=== PATIENT | male | born 2000 | race Caucasian/White ===

== ENCOUNTER 2024-07-04 14:15 | Emergency (ER) | payer OTHER, SELFPAY ==
[2024-07-04 14:21] VITALS: BP 140/92
[2024-07-04 14:50] LABS: % Basophils 0.2 % (0-2); % Immature Granulocytes 0.3 % (0-0.5); % Lymphocytes 12.5 % (20.5-51.1); % Monocytes 3.6 % (1.7-9.3); % Neutrophils 82.4 % (42.2-75.2); Absolute Eosinophils 0.1 10^3/uL (0-0.7); Absolute Lymphocytes 1.4 10^3/uL (1.2-3.4); Absolute Monocytes 0.4 10^3/uL (0.1-0.6); Absolute Neutrophils 9.3 10^3/uL (1.4-6.5); Hematocrit 51.1 % (39.0-52.0); Hemoglobin 17.2 g/dL (13.0-18.0); Mean Corp Hgb Conc. 33.7 g/dL (33.0-37.0); Mean Corpuscular Hgb 28.8 pg (27.0-31.0); Mean Corpuscular Volume 85.5 fL (80.0-94.0); Mean Platelet Volume 8.6 fL (7.4-10.4); Nucleated Red Blood Cells % 0 % (-); Platelet Count 281 10^3/uL (130-400); Red Blood Cell Count 5.98 10^6/uL (4.70-6.10); Red Cell Dist. Width 12.9 % (11.5-14.5); White Blood Cell Count 11.3 10^3/uL (4.8-10.8)
[2024-07-04 14:55] LABS: ALT (SGPT) 19 U/L (0-50); AST (SGOT) 26 U/L (17-59); Albumin 5.1 g/dl (3.5-5.0); Alkaline Phosphatase 62 U/L (38-126); Blood Urea Nitrogen 27 mg/dl (9-20); Calcium 10.2 mg/dl (8.4-10.2); Carbon Dioxide 32 mmol/L (22-30); Chloride 99 mmol/L (98-107); Glucose 119 mg/dl (70-99); Lipase 34 U/L (23-300); Potassium 4.6 mmol/L (3.5-5.1); Sodium 139 mmol/L (135-145); Total Bilirubin 1.9 mg/dl (0.2-1.3); Total Protein 8.4 g/dl (6.3-8.2); eGFR > 60.00
[2024-07-04 17:14] VITALS: BP 155/89
--- NOTE | 2024-07-04 17:58 | EDRN ---
Dr. Bosch in room w/pt.
--- NOTE | 2024-07-04 18:05 | ED.GENMED ---
History of Present Illness
General
Chief Complaint: Breathing Problem
Source: patient and family
Time Seen by Provider: 07/04/24 17:57
History of Present Illness
History of Present Illness:
24-year-old presents to the emergency room for evaluation of feeling a discomfort in his epigastrium and chest that waxes and wanes. He has been experiencing this for the past month. He describes it primarily as a hunger type discomfort that is
followed by a feeling of not being able to take a satisfying breath. He does not feel particular short of breath. He does not have pain with deep inspiration. Mom concerned because the patient's brother was diagnosed with 'blood clot'.
Phy Exam
Physical Exam
Physical Exam:
General: Awake, Alert, Oriented X3. No acute distress.
Vitals: unremarkable
Head: Atraumatic
Eyes: Pupils equal, EOMI
Throat: Airway intact, no exudates
Neck: Trachea midline
Lungs: Clear and equal b/l
Heart: Regular rate, no murmurs
Abd: Soft, Nontender, No pulsatile mass
Neuro: Nonfocal
Skin: Warm, dry, no rash
Extremities: pulses equal b/l, no edema
Course
Orders/Labs/Results
Orders:
Orders
07/04/24 14:17
Electrocardiogram (*1) Urgent
Reason for Study: Chest Pain
EKG- Treatment ONCE
07/04/24 14:27
Complete Blood Count/With Diff Urgent
Comprehensive Metabolic Panel Urgent
Lipase Urgent
07/04/24 18:20
D-Dimer Urgent
07/04/24 18:47
CT Chest Pe Study Urgent
Comment:
Reason For Exam: chest pain family hx of PE
Abnormal Lab Results
07/04/24 07/04/24
14:27 18:20
WBC 11.3 H 10^3/uL
(4.8-10.8)
Absolute Neuts (auto) 9.3 H 10^3/uL
(1.4-6.5)
Neutrophils % 82.4 H %
(42.2-75.2)
Lymphocytes % 12.5 L %
(20.5-51.1)
D-Dimer 0.53 H ug/mlFEU
(0.00-0.50)
Carbon Dioxide 32 H mmol/L
(22-30)
BUN 27 H mg/dl
(9-20)
Glucose 119 H mg/dl
(70-99)
Total Bilirubin 1.9 H mg/dl
(0.2-1.3)
Total Protein 8.4 H g/dl
(6.3-8.2)
Albumin 5.1 H g/dl
(3.5-5.0)
07/04/24 14:27
07/04/24 14:27
Vital Signs
Initial and Last Documented VS:
Initial Vital Signs
Temp Pulse Resp BP Pulse Ox
97.9 F 106 20 140/92 99
07/04/24 14:21 07/04/24 14:21 07/04/24 14:21 07/04/24 14:21 07/04/24 14:21
Last Documented Vital Signs
Temp Pulse Resp BP Pulse Ox
97.9 F 53 12 144/64 96
07/04/24 14:21 07/04/24 20:00 07/04/24 20:00 07/04/24 20:00 07/04/24 20:00
MDM/Problems Addressed
Differential Diagnosis Includes:
GERD, cardiac pain, PE
MDM/Problems Addressed:
Patient brought to the emergency room at the rest of his primary care doctor due to chest discomfort. The overall description seems atypical. Troponins negative. Mom concerned because there is a history of pulmonary embolism in the patient's
brother. D-dimer ordered to help exclude PE. Unfortunately D-dimer is mildly elevated. CT angiogram obtained to rule out PE. This is negative for PE. No other pathology noted. Suspect the patient's symptoms are GI related. Recommend a course
of Prilosec OTC. Follow-up with primary
*Radiology
Radiology exam reviewed: radiology read reviewed
*Pulse Oximetry
Patient hypoxic: no
*EKG
Interpreted by ED Provider?: Yes
Heart Rate: 78
Rate: normal
Rhythm: sinus
[place]: normal axis
Interval: normal interval
QRS Pattern: normal QRS
Ischemia: no ischemia
*Structures Assembler Interpretation
Rate: normal
Interpretation: normal
Rhythm: sinus
*Critical Care Note
Total Time (30-74mins, 75-104mins- exclusive of procedures): Not Applicable
ED Attending Note
-
Portions of this chart may have been created with voice recognition software.� Occasional wrong word or��sound alike� substitutions may have occurred due to the inherent limitations of voice recognition software.
Discharge Plan
Departure
Patient Disposition: Home (Routine Discharge)
Date of Disposition: 07/04/24
Time of Disposition: 21:45
Patient with high blood pressure during this ER visit?: Yes
Condition: Good
Discharge Problem:
Chest pain, Chest pain due to GERD
Instructions: Chest Pain (DC), Acid reflux and GERD in adults
Referrals:
Prachi Jarquin, DO [Family Provider] -
Activity Restrictions/Additional Instructions:
Try taking a course of Prilosec OTC or similar medication. Follow up with your primary care provider.
Interventions
Interventions:
*Risk Screen - Suicide Last Done: 07/04/24 18:26
*General Assessment Last Done: 07/04/24 18:26
*Neglect/Abuse Screening Last Done: 07/04/24 18:26
ED- Fall Risk Assessment Last Done: 07/04/24 18:26
*ED COVID-19 Vaccine History Last Done: 07/04/24 18:26
*Nursing Disposition Last Done: 07/04/24 22:09
ED- Cardiac Assessment Last Done: 07/04/24 18:26
ED- Pulmonary Assessment Last Done: 07/04/24 18:26
Discharge Date and Time
Discharge Date/Time: 07/04/24 22:10
Print Language: WELSH
[2024-07-04 18:26] VITALS: BMI 23.5
[2024-07-04 18:28] VITALS: BP 137/80
[2024-07-04 18:42] LABS: D-Dimer 0.53 ug/mlFEU (0.00-0.50)
[2024-07-04 19:00] VITALS: BP 142/75
[2024-07-04 20:00] VITALS: BP 144/64
== END 2024-07-04 22:10 | disposition home or self-care (01) ==
LOC: EMR 14:15
PROVIDERS: Student in an Organized Health Care Education/Training Program; EMERGENCY PHYSICIAN Emergency Medicine; FAMILY PHYSICIAN Family Medicine
DX: R07.89 Other chest pain (principal); K21.9 Gastro-esophageal reflux disease without esophagitis
CPT/HCPCS: 99284; 71275; 80053; 83690; 85025; 85379; 93005; Q9967